=== PATIENT | male | born 2000 | race Caucasian/White ===

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

== ENCOUNTER 2019-08-18 01:32 | Emergency (ER) | payer SELFPAY ==
[~2019-08-18] VITALS: Ht 167.7 cm; Wt 57.6 kg
[2019-08-18] MEDS ORDERED: TETANUS,DIPTH,PERTUSS P/F (BOOSTRIX) 0.5 ML VIAL IM ONE (02:15)
[2019-08-18] MEDS ORDERED: LIDOCAINE/EPI 2% 1:100,00 (XYLOCAINE) 20 ML VIAL INJ ONE (02:30)
[2019-08-18] MEDS ORDERED: SODIUM BICARB 8.4% 50 MEQ/50 ML VIAL IV ONE (02:30)
[2019-08-18] MEDS ORDERED: SULF1TAB35 PO (04:19)
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
[2019-08-18] MEDS ORDERED: TRIM/SULFAMETH 160/800 (SEPTRA DS) TAB PO ONE (04:30)
[2019-08-18 04:34] VITALS: BP 109/67
--- NOTE | 2019-08-18 06:57 | Diagnostic Imaging Report ---
INDICATION: Laceration. Two views were obtained. FINDINGS: There is a soft tissue injury to the mid right forearm. There are no radiopaque foreign bodies. There is no fracture or dislocation. IMPRESSION: Soft tissue injury, otherwise unremarkable. Dictated by: Dictated on workstation # [id number]
== END 2019-08-18 04:33 | disposition home or self-care (01) ==
LOC: EDUNIT# 01:32 → ER 01:35
DX: S51.811A Laceration without foreign body of right forearm, initial encounter (principal); F17.210 Nicotine dependence, cigarettes, uncomplicated; Z23 Encounter for immunization; Z88.8 Allergy status to other drugs, medicaments and biological substances; W25.XXXA Contact with sharp glass, initial encounter
CPT/HCPCS: 13152; 73090; 90715